=== PATIENT | female | born 1995 | race African-American/Black ===

== ENCOUNTER 2020-04-23 19:01 | Emergency (ER) | payer OTHER ==
[~2020-04-23] VITALS: Ht 167.6 cm; Wt 122.7 kg
[2020-04-23 19:25] VITALS: BP 141/106
[2020-04-23 21:00] LABS: BILIRUBIN,URINE SMALL (NEG); CLARITY,URINE CLOUDY; COLOR,URINE YELLOW; NITRITE,URINE NEGATIVE (NEG); PROTEIN,URINE NEGATIVE (NEG-TRACE)
[2020-04-23 21:09] LABS: BACTERIA,URINE MANY /HPF (0-FEW); RBC,URINE 0 /HPF (0-2)
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
[2020-04-23] MEDS ORDERED: ACETAMINOPHEN 500 MG TABLET PO ONE (22:00)
[2020-04-23] MEDS ORDERED: IBUPROFEN 400 MG TABLET. PO ONE (22:00)
[2020-04-23] MEDS ORDERED: NAPR-514 PO (22:02)
[2020-04-23] MEDS ORDERED: CYCL10TA2 PO (22:02)
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
[2020-04-23] MEDS ORDERED: KETOROLAC 60 MG/2 ML VIAL. IM ONE (22:30)
[2020-04-23] MEDS ORDERED: ORPHENADRINE CITRATE 60 MG/2 ML VIAL. IM ONE (22:30)
== END 2020-04-23 22:31 | disposition home or self-care (01) ==
LOC: ER 19:01
DX: G89.11 Acute pain due to trauma (principal); R51.9 Headache, unspecified; M54.5 Low back pain; M54.2 Cervicalgia; V49.88XA Car occupant (driver) (passenger) injured in other specified transport accidents, initial encounter; Y93.89 Activity, other specified; Y92.413 State road as the place of occurrence of the external cause; Y99.8 Other external cause status
CPT/HCPCS: 70450; 72125; 72128; 72131; 81001; 81025; 87086; 96372; 99285; J1885; J2360